=== PATIENT | male | born 1970 | race Caucasian/White ===

== ENCOUNTER 2018-09-06 06:03 | Emergency (ER) | payer OTHER ==
[~2018-09-06] VITALS: Ht 182.9 cm; Wt 95.8 kg
[2018-09-06 06:10] VITALS: BP 143/89; PULSE 74; RESP 17; Ht 182.9 cm; Wt 95.8 kg
--- NOTE | 2018-09-06 06:26 | ERD ---
ER Documentation Chief Complaint Chief Complaint PT C/O UPPER BACKPAIN X2 DAYS DUE MECHANICAL INJURY HPI This is a 48-year-old male who presents here in the emergency department with complaints of upper back pain, bilateral rib pain that started 2 days ago after having a ground-level fall. Patient stated that he was seated on his chair, fell backwards, landed on the wooden bed frame. Pain was described as achy on range of motion. Denies headache, head injury, loss of consciousness, dizziness, neck pain, neck stiffness, throat pain, difficulty swallowing, difficulty breathing lying flat, shoulder pain, chest pain, back pain, abdominal pain, nausea, vomiting, constipation, diarrhea, urinary symptoms, loss of bowel and bladder control, trauma, injury, falls, difficulty walking due to pain, numbness or tingling sensation, calf pain, recent travel, recent major surgery in the last 3 weeks, calf pain, recent long travel, recent exposure to any illness, recent antibiotic use in the last 3 months, fever, chills, seizures. Past medical history: Surgical history: Social: Denies smoking, use of alcoholic beverages, use of illegal drugs. ROS All systems reviewed and are negative except as per history of present illness. Medications Home Meds Active Scripts Gabapentin* (Gabapentin*) 100 Mg Capsule, 200 MG PO TID PRN for PAIN LEVEL 6-10, #30 CAP Prov:PASILABANKYLEAR F 09/06/18 Methylprednisolone* (Medrol* DOSE PACK) 4 Mg/Dose-Pack Tab.ds.pk, 4 MG PO . DIRECTED, #1 PACKET Prov:PASILABANKYLEAR F 09/06/18 Ibuprofen* (Motrin*) 800 Mg Tab, 800 MG PO Q6H PRN for PAIN AND OR ELEVATED TEMP, #30 TAB Prov:PASILABAN,KLAR F 09/06/18 Acyclovir* (Zovirax*) 800 Mg Tablet, 800 MG PO 5 TIMES DAILY for 7 Days, TAB Prov:PASILABAN,KLAR F 09/06/18 Allergies Allergies: Coded Allergies: No Known Allergy (Unverified , 09/06/18) Physical Exam Vitals Vital Signs Date Temp Pulse Resp B/P (MAP) Pulse Ox O2 O2 Flow FiO2 Time Delivery Rate 09/06/18 98.5 74 17 143/89 98 06:10 (107) Physical Exam Const: No acute distress Head: Atraumatic Eyes: Normal Conjunctiva ENT: Normal External Ears, Nose and Mouth. Neck: Full range of motion. No meningismus. Resp: Clear to auscultation bilaterally. Chest area: No crepitus. Symmetrical chest. Cardio: Regular rate and rhythm, no murmurs Abd: Soft, non tender, non distended. Normal bowel sounds Skin: No petechiae or rashes. Vesicular lesions to the mid back that extends to the right side. Back: No midline or flank tenderness. T-spine is in midline with no swelling/bulging but has pain to range of motion and there is tenderness to palpation. No saddle anesthesia. No neurovascular deficits. Ambulatory with steady gait. Ext: No cyanosis, or edema Neur: Awake and alert. No neurological deficit. Psych: Normal Mood and Affect Results 24 hrs Current Medications Medications Dose Sig/Cameron Start Time Status Last (Trade) Ordered Route PRN Stop Time Admin Dose Reason Admin Ketorolac 30 mg ONCE STAT 09/06/18 DC 09/06/18 Tromethamine IM 07:13 07:22 (Toradol) 09/06/18 07:14 1 tab ONCE ONCE 09/06/18 DC 09/06/18 Acetaminophen PO 07:30 07:22 / 09/06/18 07:31 Hydrocodone Bitart ([place] ()) Procedures/MDM I strongly explained to the patient that my physical exam revealed that he has shingles. Patient still insists imaging due to his history of falling. Diagnostic tests: X-ray of the chest: X-ray of the T-spine: Treatment: Toradol IM. [place]. Re-evaluation: Denies pain. No neurovascular deficits. No neurological deficits. Differential diagnosis I have low suspicion for fracture, punctured lungs, pneumothorax, hemothorax. Final diagnosis: Shingles. Contusion. Prescription: Acyclovir. Motrin. Gabapentin. Medrol dose pack. Follow-up with PCP in the next 24-48 hours. Come back here in the emergency department for any new symptoms or any worsening symptoms. All questions and concerns were answered. Patient and family members verbalized understanding and agreed with plan of care. Hemodynamically stable on discharge. Departure Diagnosis: Primary Impression: Shingles Additional Impression: Contusion, back Condition: Stable Additional Instructions: Follow-up with PCP in the next 24-48 hours. Come back here in the emergency department for any new symptoms or any worsening symptoms. LONA HUNTER Sep 06, 2018 06:26
[2018-09-06] MEDS ORDERED: MED4DP PO (07:03)
[2018-09-06] MEDS ORDERED: IBUP800T48 PO (07:03)
[2018-09-06] MEDS ORDERED: ACYC800T5 PO (07:03)
[2018-09-06] MEDS ORDERED: GABA100C14 PO (07:04)
[2018-09-06] MEDS ORDERED: KETOROLAC 30 MG INJ IM STA (07:13)
[2018-09-06] MEDS ORDERED: HYDROCODONE/APAP (10/325) TAB PO ONE (07:30)
== END 2018-09-06 07:40 | disposition home or self-care (01) ==
LOC: FTE 06:03
DX: S20.229A Contusion of unspecified back wall of thorax, initial encounter (principal); B02.9 Zoster without complications; R07.81 Pleurodynia; W07.XXXA Fall from chair, initial encounter; Y92.9 Unspecified place or not applicable
CPT/HCPCS: 71046; 72072; 96372; J1885; Z7502; Z7610